=== PATIENT | male | born 1985 | race Caucasian/White ===

== ENCOUNTER 2017-12-06 14:26 | Emergency (ER) | payer OTHER ==
[~2017-12-06 14:26] MED LIST: ISOVUE-370 76%-LOCM 1 ML ONE
[2017-12-06 14:54] LABS: #Basophils 0.1 thou/uL (0.0-0.2); #Eosinphils 0.2 thou/uL (0.0-0.7); #Lymphocytes 2.9 thou/uL (1.20-3.40); #Monocytes 1.2 thou/uL (0.11-0.59); #Neutrophils 5.1 thou/uL (1.40-6.50); %Basophils 1.3 % (0.0-1.0); %Eosinophils 2.4 % (0.0-10.0); %Lymphocytes 30.3 % (21.0-51.0); %Monocytes 12.3 % (0.0-10.0); %Neutrophils 53.6 % (42.0-75.0); Hemoglobin 17.5 g/dL (14.0-18.0); Mean Corpuscular HGB CONC 32.2 g/dL (32.0-36.0); Mean Corpuscular Hemoglobin 30.8 pg (27.0-31.0); Mean Corpuscular Volume 95.6 fL (78.0-98.0); Mean Platelet Volume 7.4 fL (7.4-10.4); Platelet Count 255 thou/uL (130-400); RBC Distribution Width 12.7 % (11.5-14.5); Red Blood Cell (RBC) Count 5.68 mill/uL (4.70-6.10); White Blood Cell (WBC) Count 9.4 thou/uL (4.8-10.8)
[2017-12-06] MEDS ORDERED: Ibuprofen 800 MG TAB ONE (15:12)
[2017-12-06 15:14] LABS: ALT (SGPT) 50 U/L (8-55); AST (SGOT) 60 U/L (5-34); Alkaline Phosphatase 34 U/L (40-150); Anion Gap 12 mmol/L (10-20); BUN (Urea Nitrogen) 12 mg/dL (8.9-20.6); Bilirubin, Total 0.8 mg/dL (0.2-1.2); Calc. Creatinine Clearance 0 mL/min (70-130); Calcium 8.7 mg/dL (7.8-10.44); Carbon Dioxide 22 mmol/L (22-29); Chloride 107 mmol/L (98-107); Estimated GFR-MDRD 67; Globulin 2.9 g/dL (2.4-3.5); Glucose 93 mg/dL (70-105); Lipase 19 U/L (8-78); Potassium 4.5 mmol/L (3.5-5.1); Protein, Total 6.9 g/dL (6.0-8.3); Sodium 136 mmol/L (136-145)
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
--- NOTE | 2017-12-06 15:42 | RAD ---
LEFT SHOULDER: 12/06/17 Three views. HISTORY: Shoulder pain. No evidence of fracture or dislocation. AC joint normally aligned. IMPRESSION: No acute osseous abnormalities. POS: [facility]
--- NOTE | 2017-12-06 15:52 | RAD ---
RIGHT HAND: 12/06/17 Three views. HISTORY: Hand pain. Carpals appear normally aligned. Metacarpals and phalanges appear intact. MCP and IP joints unremarkable. IMPRESSION: No acute findings. POS: [facility]
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
[2017-12-06] MEDS ORDERED: HYDROcodone/Acetaminophen 5/325 mg Tablet ONE (16:18)
[2017-12-06] MEDS ORDERED: Adacel (T-DAP) 0.5 ML VIAL ONE (16:18)
== END 2017-12-06 16:45 | disposition home or self-care (01) ==
LOC: ERS 14:26
DX: S06.9X1A Unspecified intracranial injury with loss of consciousness of 30 minutes or less, initial encounter (principal); V49.9XXA Car occupant (driver) (passenger) injured in unspecified traffic accident, initial encounter
CPT/HCPCS: 36415; 70450; 71260; 72125; 74177; 80053; 83690; 85025; 90471; 90715; 93005; G0390